=== PATIENT | male | born 1955 | race Caucasian/White ===

== ENCOUNTER 2018-05-25 16:04 | Inpatient (IN) | payer OTHER ==
[2018-05-25 16:28] LABS: ADD MAN DIFF? NO
[2018-05-25 16:34] LABS: WHITE BLOOD COUNT 9.1 10^3/ul (4.8-10.8)
[2018-05-25 16:34] LABS: ABNORMAL IP MESSAGE 1; BASOPHIL # 0.1 10^3/ul (0.0-0.1); BASOPHILS % 0.7 % (0.0-2.0); EOSINOPHILS # 0.1 10^3/ul (0.0-0.5); EOSINOPHILS % 1.3 % (0.0-7.0); HEMATOCRIT 46.3 % (42.0-52.0); HEMOGLOBIN 13.4 g/dl (14.0-18.0); LYMPHOCYTES # 1.1 10^3/ul (0.8-2.9); LYMPHOCYTES % 11.9 % (15.0-51.0); MEAN CORPUSCULAR HEMOGLOBIN 24.4 pg (29.0-33.0); MEAN CORPUSCULAR HGB CONC 28.9 g/dl (32.0-37.0); MEAN CORPUSCULAR VOLUME 84.3 fl (82.0-101.0); MEAN PLATELET VOLUME 10.5 fl (7.4-10.4); MONOCYTES % 10.7 % (0.0-11.0); NEUTROPHIL # 6.8 10^3/ul (1.6-7.5); NEUTROPHILS % 75.1 % (39.0-77.0); PLATELET COUNT 218 10^3/UL (140-415); POSITIVE DIFF @See below; RED BLOOD COUNT 5.49 10^6/ul (4.70-6.10); RED CELL DISTRIBUTION WIDTH 19.2 % (11.5-14.5)
[2018-05-25 16:54] LABS: ANION GAP 11 (8-16); BLOOD UREA NITROGEN 27 mg/dl (7-20); CALCIUM 9.4 mg/dl (8.4-10.2); CARBON DIOXIDE 32 mmol/L (21-31); CHLORIDE 103 mmol/L (97-110); CREATININE 0.77 mg/dl (0.61-1.24); GLUCOSE 92 mg/dl (70-220); POTASSIUM 4.1 mmol/L (3.5-5.1); SODIUM 142 mmol/L (135-144)
[2018-05-25 17:06] LABS: B-TYPE NATRIURETIC PEPTIDE 895 PG/ML (0-125); TROPONIN-I < 0.012 ng/ml (0.000-0.120)
[2018-05-25] MEDS: FUROSEMIDE 20 MG INJ IV (17:24)
[2018-05-25] MEDS ORDERED: ACETAMINOPHEN 325 MG TAB PO (18:00)
[2018-05-25] MEDS ORDERED: GLUCOSE GEL 15 GRAM TUBE BUCCAL (18:00)
[2018-05-25] MEDS ORDERED: ONDANSETRON 4 MG INJ IV ×2 (18:00)
[2018-05-25] MEDS ORDERED: DOCUSATE SODIUM 100 MG CAP PO (18:00)
[2018-05-25] MEDS ORDERED: DEXTROSE 50% 50 ML SYRINGE IV ×2 (18:00)
[2018-05-25] MEDS ORDERED: GLUCAGON 1 MG INJ IM (18:00)
[2018-05-25] MEDS ORDERED: GLUCOSE GEL 15 GRAM TUBE PO ×2 (18:00)
[2018-05-25] MEDS: INSULIN ASPART [NOVOLOG] 3 ML PEN SC ×2 (18:00→21:00)
[2018-05-25] MEDS: ATORVASTATIN 20 MG TAB PO (21:00)
[2018-05-25] MEDS: APIXABAN 5 MG TABLET PO (21:00)
[2018-05-25 23:21] LABS: CREATINE KINASE 55 IU/L (23-200)
[2018-05-25 23:32] LABS: CK INDEX 2.4; CK-MB 1.32 ng/ml (0.0-2.4); TROPONIN-I < 0.012 ng/ml (0.000-0.120)
[2018-05-26] MEDS: ACCU-CHEK XX ×4 (02:00→20:19)
[2018-05-26 04:17] LABS: AADO2 Arterial 144.7 mmHg (7.0-24.0); Allen Test ACCEPTAB; Arterial Base Excess 3.5 mmol/L (-3.0-3); Arterial Blood Gas Oxygen Sat 83.6 mmHG (95.0-98.0); Arterial COHb 1.9 % (0.0-3.0); Arterial Fraction of Oxyhgb 81.9 % (93.0-99.0); Arterial HCO3 29.9 mmol/L (22.0-26.0); Arterial MetHb 0.1 % (0.0-1.5); Arterial Total Hemglobin 13.8 g/dl (12.0-18.0); Arterial pCO2 52.6 mmhg (35-45); MODE NASAL CANNULA; Site Right Radial
[2018-05-26 06:41] LABS: ANION GAP 12 (8-16); BLOOD UREA NITROGEN 27 mg/dl (7-20); CALCIUM 9.5 mg/dl (8.4-10.2); CARBON DIOXIDE 36 mmol/L (21-31); CHLORIDE 99 mmol/L (97-110); CREATININE 0.81 mg/dl (0.61-1.24); GLUCOSE 95 mg/dl (70-220); POTASSIUM 4.1 mmol/L (3.5-5.1); SODIUM 143 mmol/L (135-144)
[2018-05-26 06:55] LABS: CREATINE KINASE 61 IU/L (23-200)
[2018-05-26 07:01] LABS: CK-MB 1.24 ng/ml (0.0-2.4); TROPONIN-I < 0.012 ng/ml (0.000-0.120)
[2018-05-26] MEDS: INSULIN ASPART [NOVOLOG] 3 ML PEN SC (08:00)
[2018-05-26] MEDS: metFORMIN 500 MG TAB PO ×2 (08:52→17:29)
[2018-05-26] MEDS: FUROSEMIDE 20 MG INJ IV ×2 (08:52→17:29)
[2018-05-26] MEDS: APIXABAN 5 MG TABLET PO ×2 (08:53→20:19)
[2018-05-26] MEDS ORDERED: FUROSEMIDE 20 MG INJ IV (09:00)
[2018-05-26] MEDS ORDERED: BROMOCRIPTINE MESYLATE 0.8 MG XX (09:00)
[2018-05-26] MEDS ORDERED: DIGOXIN 0.25 MG TAB PO (13:00)
[2018-05-26] MEDS: DIGOXIN 0.125 MG TAB PO (13:21)
[2018-05-26] MEDS: ATORVASTATIN 20 MG TAB PO (20:18)
[2018-05-27] MEDS: ACCU-CHEK XX ×5 (02:00→21:00)
[2018-05-27 06:01] LABS: BLOOD UREA NITROGEN 25 mg/dl (7-20); CALCIUM 9.3 mg/dl (8.4-10.2); CHLORIDE 95 mmol/L (97-110); CREATININE 0.81 mg/dl (0.61-1.24); GLUCOSE 103 mg/dl (70-220); POTASSIUM 4.1 mmol/L (3.5-5.1); SODIUM 142 mmol/L (135-144)
[2018-05-27 06:04] LABS: MAGNESIUM 1.7 mg/dl (1.7-2.5)
[2018-05-27 06:09] LABS: ANION GAP 10 (8-16)
[2018-05-27 06:10] LABS: CARBON DIOXIDE 41 mmol/L (21-31)
[2018-05-27] MEDS: FUROSEMIDE 20 MG INJ IV ×2 (06:51→17:43)
[2018-05-27] MEDS: metFORMIN 500 MG TAB PO ×2 (08:14→17:43)
[2018-05-27] MEDS: APIXABAN 5 MG TABLET PO ×2 (08:14→20:18)
[2018-05-27] MEDS: MAGNESIUM SULFATE 2 GM/50 ML 50 ML IVPB (10:03)
[2018-05-27] MEDS: DIGOXIN 0.125 MG TAB PO (13:20)
[2018-05-27] MEDS: ATORVASTATIN 20 MG TAB PO (20:18)
[2018-05-28] MEDS: ACCU-CHEK XX ×5 (02:00→21:00)
[2018-05-28] MEDS: FUROSEMIDE 20 MG INJ IV ×2 (05:56→17:55)
[2018-05-28 06:33] LABS: DIGOXIN 0.5 ng/ml (1.0-2.0)
[2018-05-28 07:01] LABS: ANION GAP 13 (8-16); BLOOD UREA NITROGEN 27 mg/dl (7-20); CALCIUM 9.4 mg/dl (8.4-10.2); CARBON DIOXIDE 38 mmol/L (21-31); CHLORIDE 92 mmol/L (97-110); GLUCOSE 149 mg/dl (70-220); POTASSIUM 3.9 mmol/L (3.5-5.1); SODIUM 139 mmol/L (135-144)
[2018-05-28] MEDS: APIXABAN 5 MG TABLET PO ×2 (08:15→20:56)
[2018-05-28] MEDS: metFORMIN 500 MG TAB PO ×2 (08:45→18:03)
[2018-05-28] MEDS: DIGOXIN 0.125 MG TAB PO (13:08)
[2018-05-28] MEDS: LINAGLIPTIN 5 MG TABLET PO (14:00)
[2018-05-28] MEDS: ACETAMINOPHEN 325 MG TAB PO (16:42)
[2018-05-28] MEDS ORDERED: ACCU-CHEK XX (17:30)
[2018-05-28] MEDS: ACARBOSE 50 MG TAB PO (17:58)
[2018-05-28] MEDS: ATORVASTATIN 20 MG TAB PO (20:56)
[2018-05-29] MEDS: ACCU-CHEK XX ×5 (02:00→21:00)
[2018-05-29 06:15] LABS: ALANINE AMINOTRANSFERASE 29 IU/L (13-69); ALBUMIN 3.7 g/dl (3.3-4.9); ALBUMIN/GLOBULIN RATIO 1.08; ALKALINE PHOSPHATASE 80 IU/L (42-121); ASPARTATE AMINO TRANSFERASE 37 IU/L (15-46); BILIRUBIN,INDIRECT 0.9 mg/dl (0-1.1); BILIRUBIN,TOTAL 0.9 mg/dl (0.2-1.3); BLOOD UREA NITROGEN 32 mg/dl (7-20); CALCIUM 9.4 mg/dl (8.4-10.2); CHLORIDE 92 mmol/L (97-110); CREATININE 0.73 mg/dl (0.61-1.24); GLUCOSE 99 mg/dl (70-220); SODIUM 142 mmol/L (135-144); TOTAL PROTEIN 7.1 g/dl (6.1-8.1)
[2018-05-29 06:27] LABS: ANION GAP 12 (8-16); CARBON DIOXIDE 42 mmol/L (21-31)
[2018-05-29] MEDS: FUROSEMIDE 20 MG INJ IV (06:35)
[2018-05-29 06:51] LABS: HEMOGLOBIN A1C 7.6 % (0-5.9)
[2018-05-29 06:55] LABS: MAGNESIUM 1.7 mg/dl (1.7-2.5)
[2018-05-29] MEDS: APIXABAN 5 MG TABLET PO ×2 (08:23→21:37)
[2018-05-29] MEDS: LINAGLIPTIN 5 MG TABLET PO (08:23)
[2018-05-29] MEDS: ACARBOSE 50 MG TAB PO ×3 (08:23→18:05)
[2018-05-29] MEDS: metFORMIN 500 MG TAB PO ×2 (08:28→18:05)
[2018-05-29] MEDS ORDERED: ACETAZOLAMIDE 500 MG INJ IV (11:00)
[2018-05-29] MEDS: ACETAZOLAMIDE 500 MG INJ IV (12:34)
[2018-05-29] MEDS: MAGNESIUM SULFATE 2 GM/50 ML 50 ML IVPB (12:34)
[2018-05-29] MEDS: DIGOXIN 0.125 MG TAB PO (13:21)
[2018-05-29] MEDS: ATORVASTATIN 20 MG TAB PO (21:37)
[2018-05-30] MEDS: ACCU-CHEK XX ×5 (02:00→21:55)
[2018-05-30 06:29] LABS: CALCIUM 9.2 mg/dl (8.4-10.2); CHLORIDE 93 mmol/L (97-110); CREATININE 0.81 mg/dl (0.61-1.24); GLUCOSE 145 mg/dl (70-220); POTASSIUM 4.1 mmol/L (3.5-5.1); SODIUM 140 mmol/L (135-144)
[2018-05-30 06:30] LABS: BLOOD UREA NITROGEN 25 mg/dl (7-20)
[2018-05-30 06:41] LABS: ANION GAP 9 (8-16); CARBON DIOXIDE 42 mmol/L (21-31)
[2018-05-30] MEDS: LINAGLIPTIN 5 MG TABLET PO (08:22)
[2018-05-30] MEDS: APIXABAN 5 MG TABLET PO ×2 (08:22→21:55)
[2018-05-30] MEDS: metFORMIN 500 MG TAB PO ×2 (08:22→17:16)
[2018-05-30] MEDS: CYCLOSET PO (08:24)
[2018-05-30] MEDS: ACARBOSE 50 MG TAB PO ×3 (08:31→17:16)
[2018-05-30] MEDS: ACETAZOLAMIDE 500 MG INJ IV ×2 (08:31→21:55)
[2018-05-30 08:47] LABS: AADO2 Arterial 72.1 mmHg (7.0-24.0); Allen Test ACCEPTAB; Arterial Base Excess 15.6 mmol/L (-3.0-3); Arterial Blood Gas Oxygen Sat 90.1 mmHG (95.0-98.0); Arterial COHb 1.8 % (0.0-3.0); Arterial Fraction of Oxyhgb 88.2 % (93.0-99.0); Arterial HCO3 45.6 mmol/L (22.0-26.0); Arterial MetHb 0.3 % (0.0-1.5); Arterial Total Hemglobin 13.2 g/dl (12.0-18.0); Arterial pCO2 87.1 mmhg (35-45); MODE NASAL CANNULA; Site Right Radial
[2018-05-30] MEDS ORDERED: MODAFINIL 100 MG TAB PO (10:00)
[2018-05-30] MEDS: DIGOXIN 0.125 MG TAB PO (12:42)
[2018-05-30] MEDS: ATORVASTATIN 20 MG TAB PO (21:54)
[2018-05-31] MEDS: ACCU-CHEK XX ×5 (02:00→21:00)
[2018-05-31 05:19] LABS: AADO2 Arterial 47.8 mmHg (7.0-24.0); Allen Test ACCEPTAB; Arterial Base Excess 7.3 mmol/L (-3.0-3); Arterial Blood Gas Oxygen Sat 86.5 mmHG (95.0-98.0); Arterial COHb 1.9 % (0.0-3.0); Arterial Fraction of Oxyhgb 84.9 % (93.0-99.0); Arterial HCO3 36.1 mmol/L (22.0-26.0); Arterial MetHb 0 % (0.0-1.5); Arterial Total Hemglobin 13.3 g/dl (12.0-18.0); Arterial pCO2 73.6 mmhg (35-45); MODE NASAL CANNULA; Site Right Radial
[2018-05-31 05:40] LABS: ADD MAN DIFF? NO
[2018-05-31 05:58] LABS: ABNORMAL IP MESSAGE 1; BASOPHIL # 0.1 10^3/ul (0.0-0.1); BASOPHILS % 0.8 % (0.0-2.0); EOSINOPHILS # 0.2 10^3/ul (0.0-0.5); EOSINOPHILS % 2.4 % (0.0-7.0); HEMATOCRIT 43.3 % (42.0-52.0); HEMOGLOBIN 12.3 g/dl (14.0-18.0); LYMPHOCYTES # 0.8 10^3/ul (0.8-2.9); LYMPHOCYTES % 13.1 % (15.0-51.0); MEAN CORPUSCULAR HEMOGLOBIN 24.5 pg (29.0-33.0); MEAN CORPUSCULAR HGB CONC 28.4 g/dl (32.0-37.0); MEAN CORPUSCULAR VOLUME 86.3 fl (82.0-101.0); MEAN PLATELET VOLUME 10.5 fl (7.4-10.4); MONOCYTE # 0.7 10^3/ul (0.3-0.9); MONOCYTES % 11.8 % (0.0-11.0); NEUTROPHIL # 4.5 10^3/ul (1.6-7.5); NEUTROPHILS % 71.4 % (39.0-77.0); PLATELET COUNT 200 10^3/UL (140-415); POSITIVE DIFF @See below; RED BLOOD COUNT 5.02 10^6/ul (4.70-6.10); RED CELL DISTRIBUTION WIDTH 17.5 % (11.5-14.5)
[2018-05-31 05:58] LABS: WHITE BLOOD COUNT 6.3 10^3/ul (4.8-10.8)
[2018-05-31 06:15] LABS: PHOSPHORUS 4.3 mg/dl (2.5-4.9)
[2018-05-31 06:50] LABS: ALANINE AMINOTRANSFERASE 31 IU/L (13-69); ALBUMIN 3.7 g/dl (3.3-4.9); ALBUMIN/GLOBULIN RATIO 1.02; ALKALINE PHOSPHATASE 87 IU/L (42-121); ANION GAP 13 (8-16); ASPARTATE AMINO TRANSFERASE 45 IU/L (15-46); BILIRUBIN,INDIRECT 0.7 mg/dl (0-1.1); BILIRUBIN,TOTAL 0.7 mg/dl (0.2-1.3); BLOOD UREA NITROGEN 21 mg/dl (7-20); CALCIUM 9.1 mg/dl (8.4-10.2); CARBON DIOXIDE 36 mmol/L (21-31); CHLORIDE 94 mmol/L (97-110); CREATININE 0.79 mg/dl (0.61-1.24); GLUCOSE 159 mg/dl (70-220); POTASSIUM 3.9 mmol/L (3.5-5.1); SODIUM 139 mmol/L (135-144); TOTAL PROTEIN 7.3 g/dl (6.1-8.1)
[2018-05-31] MEDS: ACARBOSE 50 MG TAB PO ×3 (08:14→17:30)
[2018-05-31] MEDS: ACETAZOLAMIDE 500 MG INJ IV ×2 (08:15→21:11)
[2018-05-31] MEDS: metFORMIN 500 MG TAB PO ×2 (08:15→17:31)
[2018-05-31] MEDS: APIXABAN 5 MG TABLET PO ×2 (08:15→21:10)
[2018-05-31] MEDS: LINAGLIPTIN 5 MG TABLET PO (08:15)
[2018-05-31] MEDS: CYCLOSET PO (08:16)
[2018-05-31] MEDS: DIGOXIN 0.125 MG TAB PO (12:19)
[2018-05-31] MEDS: ATORVASTATIN 20 MG TAB PO (21:10)
[2018-06-01] MEDS: ACCU-CHEK XX ×3 (02:00→11:30)
[2018-06-01] MEDS: ACARBOSE 50 MG TAB PO ×2 (07:58→11:55)
[2018-06-01] MEDS: metFORMIN 500 MG TAB PO (07:58)
[2018-06-01] MEDS: LINAGLIPTIN 5 MG TABLET PO (07:58)
[2018-06-01] MEDS: APIXABAN 5 MG TABLET PO (07:58)
[2018-06-01] MEDS: CYCLOSET PO (07:59)
[2018-06-01 09:21] LABS: ADD MAN DIFF? NO
[2018-06-01 09:22] LABS: ABNORMAL IP MESSAGE 1; BASOPHIL # 0.1 10^3/ul (0.0-0.1); BASOPHILS % 0.8 % (0.0-2.0); EOSINOPHILS # 0.1 10^3/ul (0.0-0.5); EOSINOPHILS % 1.8 % (0.0-7.0); HEMATOCRIT 43.9 % (42.0-52.0); HEMOGLOBIN 12.6 g/dl (14.0-18.0); LYMPHOCYTES # 0.9 10^3/ul (0.8-2.9); LYMPHOCYTES % 13.2 % (15.0-51.0); MEAN CORPUSCULAR HEMOGLOBIN 24.6 pg (29.0-33.0); MEAN CORPUSCULAR HGB CONC 28.7 g/dl (32.0-37.0); MEAN CORPUSCULAR VOLUME 85.6 fl (82.0-101.0); MONOCYTE # 0.7 10^3/ul (0.3-0.9); MONOCYTES % 11.2 % (0.0-11.0); NEUTROPHIL # 4.8 10^3/ul (1.6-7.5); NEUTROPHILS % 72.8 % (39.0-77.0); PLATELET COUNT 186 10^3/UL (140-415); POSITIVE DIFF @See below; RED BLOOD COUNT 5.13 10^6/ul (4.70-6.10)
[2018-06-01 09:22] LABS: WHITE BLOOD COUNT 6.6 10^3/ul (4.8-10.8)
[2018-06-01 09:43] LABS: ANION GAP 12 (8-16); BLOOD UREA NITROGEN 24 mg/dl (7-20); CALCIUM 9.5 mg/dl (8.4-10.2); CARBON DIOXIDE 35 mmol/L (21-31); CHLORIDE 97 mmol/L (97-110); CREATININE 0.81 mg/dl (0.61-1.24); GLUCOSE 158 mg/dl (70-220); POTASSIUM 4.2 mmol/L (3.5-5.1); SODIUM 140 mmol/L (135-144)
[2018-06-01] MEDS ORDERED: FUROSEMIDE 20 MG TAB PO (11:00)
[2018-06-01] MEDS: FUROSEMIDE 40 MG TAB PO (11:56)
[2018-06-01] MEDS: DIGOXIN 0.125 MG TAB PO (12:01)
== END 2018-06-01 16:14 | disposition home health service (06) | DRG 292 ==
LOC: E/R 16:04 → 6WM 17:39
DX: I11.0 Hypertensive heart disease with heart failure (principal); I47.2 Ventricular tachycardia; E87.3 Alkalosis; Z68.42 Body mass index [BMI] 45.0-49.9, adult; I50.23 Acute on chronic systolic (congestive) heart failure; I42.9 Cardiomyopathy, unspecified; I48.91 Unspecified atrial fibrillation; Z79.01 Long term (current) use of anticoagulants; E66.9 Obesity, unspecified; G47.33 Obstructive sleep apnea (adult) (pediatric)
CPT/HCPCS: 36415; 36600; 71045; 71046; 71250; 80048; 80053; 80162; 82550; 82553; 82803; 82962; 83036; 83735; 83880; 84100; 84484; 85025; 93005; 93306; 96374; 97116; 97161; 97530; 99291-25; J1120

== ENCOUNTER 2019-03-12 13:06 | Inpatient (IN) | payer OTHER ==
[2019-03-12 15:18] LABS: ADD MAN DIFF? NO
[2019-03-12 15:23] LABS: WHITE BLOOD COUNT 10.9 10^3/ul (4.8-10.8)
[2019-03-12 15:23] LABS: BASOPHILS % 0.4 % (0.0-2.0); EOSINOPHILS # 0.1 10^3/ul (0.0-0.5); HEMATOCRIT 44.3 % (42.0-52.0); HEMOGLOBIN 13.5 g/dl (14.0-18.0); LYMPHOCYTES # 1.3 10^3/ul (0.8-2.9); LYMPHOCYTES % 11.8 % (15.0-51.0); MEAN CORPUSCULAR HEMOGLOBIN 25.5 pg (29.0-33.0); MEAN CORPUSCULAR HGB CONC 30.5 g/dl (32.0-37.0); MEAN CORPUSCULAR VOLUME 83.7 fl (82.0-101.0); MEAN PLATELET VOLUME 9.9 fl (7.4-10.4); MONOCYTE # 1.3 10^3/ul (0.3-0.9); MONOCYTES % 11.6 % (0.0-11.0); NEUTROPHIL # 8.2 10^3/ul (1.6-7.5); NEUTROPHILS % 74.6 % (39.0-77.0); PLATELET COUNT 225 10^3/UL (140-415); RED BLOOD COUNT 5.29 10^6/ul (4.70-6.10)
[2019-03-12] MEDS: LEVALBUTEROL (NEB) 1.25 MG/0.5 ML AMP INH (15:38)
[2019-03-12] MEDS: IPRATROPIUM (NEB) 0.5 MG/2.5 ML AMP INH (15:38)
[2019-03-12 15:43] LABS: INR 1.34; PARTIAL THROMBOPLASTIN TIME 34.1 Sec (23.0-35.0); PROTIME 16.7 Sec (11.9-14.9); PT RATIO 1.3
[2019-03-12 15:44] LABS: ALANINE AMINOTRANSFERASE 38 IU/L (13-69); ALBUMIN/GLOBULIN RATIO 1.17; ALKALINE PHOSPHATASE 70 IU/L (42-121); ANION GAP 10 (5-13); ASPARTATE AMINO TRANSFERASE 30 IU/L (15-46); BILIRUBIN,INDIRECT 0.9 mg/dl (0-1.1); BILIRUBIN,TOTAL 0.9 mg/dl (0.2-1.3); BLOOD UREA NITROGEN 25 mg/dl (7-20); CALCIUM 9.1 mg/dl (8.4-10.2); CARBON DIOXIDE 29 mmol/L (21-31); CHLORIDE 101 mmol/L (97-110); CREATININE 0.93 mg/dl (0.61-1.24); Estimated GFR > 60 mL/min (>60); GLUCOSE 106 mg/dl (70-220); POTASSIUM 3.8 mmol/L (3.5-5.1); SODIUM 140 mmol/L (135-144); TOTAL PROTEIN 7.4 g/dl (6.1-8.1)
[2019-03-12 15:45] LABS: MAGNESIUM 2.2 mg/dl (1.7-2.5)
[2019-03-12 15:48] LABS: DIGOXIN 0.7 ng/ml (1.0-2.0)
[2019-03-12 15:56] LABS: B-TYPE NATRIURETIC PEPTIDE 324 PG/ML (0-125); TROPONIN-I < 0.012 ng/ml (0.000-0.120)
[2019-03-12 17:28] LABS: Allen Test ACCEPTAB; Arterial Base Excess -0.7 mmol/L (-3.0-3); Arterial Blood Gas Oxygen Sat 87.3 mmHG (95.0-98.0); Arterial COHb 1.6 % (0.0-3.0); Arterial Fraction of Oxyhgb 85.8 % (93.0-99.0); Arterial HCO3 24.6 mmol/L (22.0-26.0); Arterial MetHb 0.1 % (0.0-1.5); Arterial pCO2 42.8 mmhg (35-45); MODE NASAL CANNULA; Site Right Radial
[2019-03-12] MEDS: METHYLPREDNISOLONE 125 MG INJ IV (17:31)
[2019-03-12] MEDS: LEVOFLOXACIN 750MG/D5W (PMX) 150 ML IVPB (17:31)
[2019-03-12] MEDS: SOD CHLORIDE 0.9% 100 ML (18:33)
[2019-03-12] MEDS: IOHEXOL 100 ML (18:33)
[2019-03-12 18:52] LABS: URINE BLOOD (Dip) POC Negative (NEGATIVE); URINE KETONES (Dip) POC Negative (NEGATIVE); URINE LEUKOCYTE EST (Dip) POC Negative (NEGATIVE); URINE NITRITE (Dip) POC Negative (NEGATIVE); URINE TOTAL PROTEIN POC Negative (NEGATIVE)
[2019-03-12] MEDS: IPRATROPIUM (NEB) 0.5 MG/2.5 ML AMP HHN (19:40)
[2019-03-12] MEDS: LEVALBUTEROL (NEB) 1.25 MG/0.5 ML AMP HHN (19:40)
[2019-03-12] MEDS ORDERED: ONDANSETRON 4 MG INJ IV (20:30)
[2019-03-12] MEDS ORDERED: ZOLPIDEM 5 MG TAB PO (20:30)
[2019-03-12] MEDS ORDERED: PROMETHAZINE/DM (CUP) PO (21:00)
[2019-03-12] MEDS ORDERED: GLUCOSE GEL 15 GRAM TUBE BUCCAL (21:00)
[2019-03-12] MEDS ORDERED: GLUCOSE GEL 15 GRAM TUBE PO ×2 (21:00)
[2019-03-12] MEDS: INSULIN ASPART [NOVOLOG] 3 ML PEN SC (21:00)
[2019-03-12] MEDS ORDERED: DEXTROSE 50% 50 ML SYRINGE IV ×2 (21:00)
[2019-03-12] MEDS ORDERED: NON-FORMULARY/PATIENT OWN MED (Simvastatin* (Zocor*) 40 MG) PO (21:00)
[2019-03-12] MEDS ORDERED: GLUCAGON 1 MG INJ IM (21:00)
[2019-03-12 21:44] LABS: LACTIC ACID 1.4 mmol/L (0.5-2.0)
[2019-03-12] MEDS: FUROSEMIDE 40 MG TAB PO (21:57)
[2019-03-12] MEDS: ATORVASTATIN 20 MG TAB PO (23:24)
[2019-03-13] MEDS: METHYLPREDNISOLONE 125 MG INJ IV ×4 (01:00→21:33)
[2019-03-13] MEDS: ALBUTEROL/IPRATROPIUM (NEB) 3 ML AMP HHN ×6 (01:41→19:39)
[2019-03-13] MEDS: INSULIN ASPART [NOVOLOG] 3 ML PEN SC ×4 (08:00→21:04)
[2019-03-13] MEDS ORDERED: BROMOCRIPTINE MESYLATE PO (09:00)
[2019-03-13] MEDS: GLIMEPIRIDE 4 MG TAB PO ×2 (09:34→17:32)
[2019-03-13] MEDS: metFORMIN 500 MG TAB PO (09:34)
[2019-03-13] MEDS: DIGOXIN 0.25 MG TAB PO (10:12)
[2019-03-13] MEDS: FUROSEMIDE 40 MG TAB PO ×2 (10:13→21:34)
[2019-03-13] MEDS: APIXABAN 5 MG TABLET PO ×2 (12:53→21:34)
[2019-03-13] MEDS: LEVOFLOXACIN 750MG/D5W (PMX) 150 ML IVPB (17:16)
[2019-03-13] MEDS: METOPROLOL (XL) 25 MG TAB PO (21:34)
[2019-03-13] MEDS: ATORVASTATIN 20 MG TAB PO (21:34)
[2019-03-13] MEDS: [UNRECOGNIZED DRUG - OTHER] XX (23:30)
[2019-03-14] MEDS: ALBUTEROL/IPRATROPIUM (NEB) 3 ML AMP HHN ×6 (01:06→20:26)
[2019-03-14] MEDS: METHYLPREDNISOLONE 125 MG INJ IV ×3 (05:37→17:27)
[2019-03-14 05:41] LABS: ADD MAN DIFF? NO
[2019-03-14 05:43] LABS: BASOPHILS % 0.1 % (0.0-2.0); HEMATOCRIT 43.5 % (42.0-52.0); HEMOGLOBIN 13.2 g/dl (14.0-18.0); LYMPHOCYTES # 0.7 10^3/ul (0.8-2.9); LYMPHOCYTES % 6.6 % (15.0-51.0); MEAN CORPUSCULAR HEMOGLOBIN 25.5 pg (29.0-33.0); MEAN CORPUSCULAR HGB CONC 30.3 g/dl (32.0-37.0); MEAN PLATELET VOLUME 10.4 fl (7.4-10.4); MONOCYTE # 0.4 10^3/ul (0.3-0.9); MONOCYTES % 3.2 % (0.0-11.0); NEUTROPHILS % 89.2 % (39.0-77.0); PLATELET COUNT 256 10^3/UL (140-415); RED BLOOD COUNT 5.18 10^6/ul (4.70-6.10); RED CELL DISTRIBUTION WIDTH 16.6 % (11.5-14.5)
[2019-03-14 05:43] LABS: WHITE BLOOD COUNT 11.2 10^3/ul (4.8-10.8)
[2019-03-14 06:06] LABS: ALANINE AMINOTRANSFERASE 31 IU/L (13-69); ALBUMIN 3.9 g/dl (3.3-4.9); ALBUMIN/GLOBULIN RATIO 1.21; ALKALINE PHOSPHATASE 69 IU/L (42-121); ANION GAP 12 (5-13); ASPARTATE AMINO TRANSFERASE 35 IU/L (15-46); BILIRUBIN,INDIRECT 0.5 mg/dl (0-1.1); BILIRUBIN,TOTAL 0.5 mg/dl (0.2-1.3); BLOOD UREA NITROGEN 22 mg/dl (7-20); CALCIUM 9.8 mg/dl (8.4-10.2); CARBON DIOXIDE 30 mmol/L (21-31); CHLORIDE 102 mmol/L (97-110); CREATININE 0.89 mg/dl (0.61-1.24); Estimated GFR > 60 mL/min (>60); GLUCOSE 256 mg/dl (70-220); MAGNESIUM 2.3 mg/dl (1.7-2.5); POTASSIUM 4.2 mmol/L (3.5-5.1); SODIUM 144 mmol/L (135-144); TOTAL PROTEIN 7.1 g/dl (6.1-8.1)
[2019-03-14] MEDS: [UNRECOGNIZED DRUG - OTHER] XX (07:30)
[2019-03-14] MEDS: GLIMEPIRIDE 4 MG TAB PO (07:46)
[2019-03-14 07:52] LABS: AADO2 Arterial 586.1 mmHg (7.0-24.0); Allen Test ACCEPTAB; Arterial Base Excess 2.3 mmol/L (-3.0-3); Arterial Blood Gas Oxygen Sat 95.2 mmHG (95.0-98.0); Arterial COHb 0.4 % (0.0-3.0); Arterial Fraction of Oxyhgb 94.8 % (93.0-99.0); Arterial HCO3 27.7 mmol/L (22.0-26.0); Arterial MetHb 0 % (0.0-1.5); Arterial pCO2 45.7 mmhg (35-45); MODE HFNC; Site Right Radial
[2019-03-14] MEDS: INSULIN ASPART [NOVOLOG] 3 ML PEN SC ×4 (07:59→20:58)
[2019-03-14] MEDS: APIXABAN 5 MG TABLET PO ×2 (08:53→20:51)
[2019-03-14] MEDS: DIGOXIN 0.25 MG TAB PO (08:53)
[2019-03-14] MEDS: METOPROLOL (XL) 25 MG TAB PO ×2 (08:54→20:51)
[2019-03-14] MEDS: FUROSEMIDE 40 MG TAB PO ×2 (08:59→20:51)
[2019-03-14] MEDS ORDERED: VANCOMYCIN IV PER PHARMACY XX (09:30)
[2019-03-14] MEDS: CEFEPIME 2GM/50 ML (PMX) 50 ML IVPB ×3 (09:56→21:21)
[2019-03-14] MEDS: VANCOMYCIN HCL 2 GM in SOD CHLORIDE 0.9% 500 ML IVPB (12:05)
[2019-03-14] MEDS: CYCLOSET PO (14:34)
[2019-03-14] MEDS: ACETAZOLAMIDE 250 MG TAB PO (20:51)
[2019-03-14] MEDS: ATORVASTATIN 20 MG TAB PO (20:51)
[2019-03-15] MEDS: VANCOMYCIN HCL 1.5 GM in SOD CHLORIDE 0.9% 250 ML IVPB ×2 (00:35→15:33)
[2019-03-15] MEDS: METHYLPREDNISOLONE 125 MG INJ IV ×4 (00:35→20:38)
[2019-03-15] MEDS: ALBUTEROL/IPRATROPIUM (NEB) 3 ML AMP HHN ×6 (01:16→20:42)
[2019-03-15 05:24] LABS: ADD MAN DIFF? NO
[2019-03-15 05:34] LABS: WHITE BLOOD COUNT 13.9 10^3/ul (4.8-10.8)
[2019-03-15 05:34] LABS: BASOPHILS % 0.1 % (0.0-2.0); HEMOGLOBIN 12.8 g/dl (14.0-18.0); LYMPHOCYTES # 0.9 10^3/ul (0.8-2.9); LYMPHOCYTES % 6.6 % (15.0-51.0); MEAN CORPUSCULAR HEMOGLOBIN 25.4 pg (29.0-33.0); MEAN CORPUSCULAR HGB CONC 30.5 g/dl (32.0-37.0); MEAN CORPUSCULAR VOLUME 83.3 fl (82.0-101.0); MEAN PLATELET VOLUME 10.7 fl (7.4-10.4); MONOCYTE # 0.6 10^3/ul (0.3-0.9); MONOCYTES % 4.5 % (0.0-11.0); NEUTROPHIL # 12.3 10^3/ul (1.6-7.5); NEUTROPHILS % 87.9 % (39.0-77.0); PLATELET COUNT 240 10^3/UL (140-415); RED BLOOD COUNT 5.04 10^6/ul (4.70-6.10); RED CELL DISTRIBUTION WIDTH 16.5 % (11.5-14.5)
[2019-03-15] MEDS: CEFEPIME 2GM/50 ML (PMX) 50 ML IVPB ×3 (05:42→22:08)
[2019-03-15 05:57] LABS: PHOSPHORUS 4.1 mg/dl (2.5-4.9)
[2019-03-15 05:57] LABS: MAGNESIUM 2.4 mg/dl (1.7-2.5)
[2019-03-15 05:58] LABS: ANION GAP 7 (5-13); BLOOD UREA NITROGEN 21 mg/dl (7-20); CARBON DIOXIDE 31 mmol/L (21-31); CHLORIDE 101 mmol/L (97-110); CREATININE 0.74 mg/dl (0.61-1.24); Estimated GFR > 60 mL/min (>60); GLUCOSE 272 mg/dl (70-220); POTASSIUM 4.2 mmol/L (3.5-5.1); SODIUM 139 mmol/L (135-144)
[2019-03-15] MEDS: INSULIN ASPART [NOVOLOG] 3 ML PEN SC ×4 (08:53→20:53)
[2019-03-15] MEDS: FUROSEMIDE 40 MG TAB PO ×2 (08:54→20:43)
[2019-03-15] MEDS: DIGOXIN 0.25 MG TAB PO (08:55)
[2019-03-15] MEDS: METOPROLOL (XL) 25 MG TAB PO ×2 (08:55→20:42)
[2019-03-15] MEDS: APIXABAN 5 MG TABLET PO ×2 (08:56→20:43)
[2019-03-15] MEDS: ACETAZOLAMIDE 250 MG TAB PO ×2 (08:56→20:43)
[2019-03-15] MEDS: CYCLOSET PO (09:00)
[2019-03-15 10:03] LABS: AADO2 Arterial 600.7 mmHg (7.0-24.0); Allen Test ACCEPTAB; Arterial Base Excess 3.2 mmol/L (-3.0-3); Arterial Blood Gas Oxygen Sat 92.1 mmHG (95.0-98.0); Arterial Fraction of Oxyhgb 91.1 % (93.0-99.0); Arterial HCO3 28.7 mmol/L (22.0-26.0); Arterial MetHb 0.1 % (0.0-1.5); Arterial pCO2 46.8 mmhg (35-45); MODE HFNC; Site Right Radial
[2019-03-15] MEDS: ATORVASTATIN 20 MG TAB PO (20:41)
[2019-03-15] MEDS: INSULIN GLARGINE [LANTus] (100 UNITS/ML) SYG SC (20:53)
[2019-03-15] MEDS: metFORMIN (XR) 500 MG TAB PO (22:07)
[2019-03-15 23:53] LABS: VANCOMYCIN,TROUGH 11.2 ug/ml (10.0-20.0)
[2019-03-16] MEDS: METHYLPREDNISOLONE 125 MG INJ IV ×5 (00:21→23:07)
[2019-03-16] MEDS: VANCOMYCIN HCL 1.5 GM in SOD CHLORIDE 0.9% 250 ML IVPB ×3 (00:21→23:07)
[2019-03-16] MEDS: ALBUTEROL/IPRATROPIUM (NEB) 3 ML AMP HHN ×6 (01:17→21:15)
[2019-03-16] MEDS: ACCU-CHEK XX (02:00)
[2019-03-16 05:39] LABS: ADD MAN DIFF? NO
[2019-03-16 05:44] LABS: BASOPHILS % 0.1 % (0.0-2.0); HEMATOCRIT 42.6 % (42.0-52.0); LYMPHOCYTES # 0.7 10^3/ul (0.8-2.9); LYMPHOCYTES % 5.5 % (15.0-51.0); MEAN CORPUSCULAR HEMOGLOBIN 25.8 pg (29.0-33.0); MEAN CORPUSCULAR HGB CONC 30.5 g/dl (32.0-37.0); MEAN CORPUSCULAR VOLUME 84.7 fl (82.0-101.0); MEAN PLATELET VOLUME 10.5 fl (7.4-10.4); MONOCYTE # 0.5 10^3/ul (0.3-0.9); MONOCYTES % 3.9 % (0.0-11.0); NEUTROPHIL # 11.6 10^3/ul (1.6-7.5); NEUTROPHILS % 89.9 % (39.0-77.0); PLATELET COUNT 217 10^3/UL (140-415); RED BLOOD COUNT 5.03 10^6/ul (4.70-6.10); RED CELL DISTRIBUTION WIDTH 16.4 % (11.5-14.5)
[2019-03-16 05:44] LABS: WHITE BLOOD COUNT 12.9 10^3/ul (4.8-10.8)
[2019-03-16] MEDS: CEFEPIME 2GM/50 ML (PMX) 50 ML IVPB ×3 (05:52→21:05)
[2019-03-16 06:23] LABS: ANION GAP 10 (5-13); BLOOD UREA NITROGEN 24 mg/dl (7-20); CALCIUM 9.2 mg/dl (8.4-10.2); CARBON DIOXIDE 29 mmol/L (21-31); CHLORIDE 100 mmol/L (97-110); CREATININE 0.86 mg/dl (0.61-1.24); Estimated GFR > 60 mL/min (>60); GLUCOSE 300 mg/dl (70-220); MAGNESIUM 2.4 mg/dl (1.7-2.5); PHOSPHORUS 3.8 mg/dl (2.5-4.9); POTASSIUM 4.2 mmol/L (3.5-5.1); SODIUM 139 mmol/L (135-144)
[2019-03-16] MEDS: INSULIN ASPART [NOVOLOG] 3 ML PEN SC ×7 (07:35→20:49)
[2019-03-16] MEDS: CYCLOSET PO (08:39)
[2019-03-16] MEDS: EMPAGLIFLOZIN 10 MG TABLET PO (08:40)
[2019-03-16] MEDS: metFORMIN (XR) 500 MG TAB PO ×2 (08:40→20:33)
[2019-03-16] MEDS: ACETAZOLAMIDE 250 MG TAB PO ×2 (08:41→20:34)
[2019-03-16] MEDS: LINAGLIPTIN 5 MG TABLET PO (08:41)
[2019-03-16] MEDS: APIXABAN 5 MG TABLET PO ×2 (08:42→20:32)
[2019-03-16] MEDS: DIGOXIN 0.25 MG TAB PO (08:42)
[2019-03-16] MEDS: METOPROLOL (XL) 25 MG TAB PO ×2 (09:00→20:34)
[2019-03-16] MEDS: FUROSEMIDE 40 MG TAB PO ×2 (09:00→20:33)
[2019-03-16] MEDS: ATORVASTATIN 20 MG TAB PO (20:33)
[2019-03-16] MEDS: INSULIN GLARGINE [LANTus] (100 UNITS/ML) SYG SC (20:38)
[2019-03-17] MEDS: ALBUTEROL/IPRATROPIUM (NEB) 3 ML AMP HHN ×7 (01:25→20:56)
[2019-03-17] MEDS: ACCU-CHEK XX (02:15)
[2019-03-17] MEDS: METHYLPREDNISOLONE 125 MG INJ IV ×4 (05:23→23:39)
[2019-03-17] MEDS: CEFEPIME 2GM/50 ML (PMX) 50 ML IVPB ×3 (05:23→21:24)
[2019-03-17 06:22] LABS: B-TYPE NATRIURETIC PEPTIDE 912 PG/ML (0-125)
[2019-03-17 06:23] LABS: DIGOXIN < 0.4 ng/ml (1.0-2.0)
[2019-03-17 06:30] LABS: ALANINE AMINOTRANSFERASE 63 IU/L (13-69); ALBUMIN 3.7 g/dl (3.3-4.9); ALBUMIN/GLOBULIN RATIO 1.27; ALKALINE PHOSPHATASE 65 IU/L (42-121); ANION GAP 10 (5-13); ASPARTATE AMINO TRANSFERASE 40 IU/L (15-46); BILIRUBIN,INDIRECT 0.6 mg/dl (0-1.1); BILIRUBIN,TOTAL 0.6 mg/dl (0.2-1.3); BLOOD UREA NITROGEN 27 mg/dl (7-20); CALCIUM 9.5 mg/dl (8.4-10.2); CARBON DIOXIDE 30 mmol/L (21-31); CHLORIDE 99 mmol/L (97-110); CREATININE 0.82 mg/dl (0.61-1.24); Estimated GFR > 60 mL/min (>60); GLUCOSE 194 mg/dl (70-220); MAGNESIUM 2.3 mg/dl (1.7-2.5); POTASSIUM 3.9 mmol/L (3.5-5.1); SODIUM 139 mmol/L (135-144); TOTAL PROTEIN 6.6 g/dl (6.1-8.1)
[2019-03-17] MEDS: INSULIN ASPART [NOVOLOG] 3 ML PEN SC ×7 (08:18→21:00)
[2019-03-17] MEDS: metFORMIN (XR) 500 MG TAB PO ×2 (08:41→20:48)
[2019-03-17] MEDS: DIGOXIN 0.25 MG TAB PO (08:43)
[2019-03-17] MEDS: LINAGLIPTIN 5 MG TABLET PO (08:43)
[2019-03-17] MEDS: METOPROLOL (XL) 25 MG TAB PO ×2 (08:44→20:49)
[2019-03-17] MEDS: FUROSEMIDE 40 MG TAB PO (08:45)
[2019-03-17] MEDS: APIXABAN 5 MG TABLET PO ×2 (08:46→20:48)
[2019-03-17] MEDS: EMPAGLIFLOZIN 10 MG TABLET PO (08:56)
[2019-03-17] MEDS: ACETAZOLAMIDE 250 MG TAB PO ×2 (08:56→20:48)
[2019-03-17 10:45] LABS: AADO2 Arterial 524.5 mmHg (7.0-24.0); Allen Test ACCEPTAB; Arterial Base Excess 0.1 mmol/L (-3.0-3); Arterial Blood Gas Oxygen Sat 94.8 mmHG (95.0-98.0); Arterial COHb 0.4 % (0.0-3.0); Arterial Fraction of Oxyhgb 94.3 % (93.0-99.0); Arterial HCO3 24.9 mmol/L (22.0-26.0); Arterial MetHb 0.1 % (0.0-1.5); Arterial pCO2 40.7 mmhg (35-45); MODE HFNC; Site Right Radial
[2019-03-17] MEDS: SPIRONOLACTONE 25 MG TAB PO (12:30)
[2019-03-17] MEDS: POTASSIUM CHLORIDE (SR) 20 MEQ TAB PO (14:24)
[2019-03-17] MEDS: VANCOMYCIN HCL 1.5 GM in SOD CHLORIDE 0.9% 250 ML IVPB ×2 (14:25→23:39)
[2019-03-17] MEDS: DIGOXIN 500 MCG INJ IV (16:02)
[2019-03-17] MEDS: CYCLOSET PO (16:02)
[2019-03-17] MEDS: FUROSEMIDE 40 MG INJ IV (17:48)
[2019-03-17] MEDS: ATORVASTATIN 20 MG TAB PO (20:48)
[2019-03-17] MEDS: INSULIN GLARGINE [LANTus] (100 UNITS/ML) SYG SC (20:55)
[2019-03-18] MEDS: ALBUTEROL/IPRATROPIUM (NEB) 3 ML AMP HHN ×6 (01:03→20:47)
[2019-03-18] MEDS: ACCU-CHEK XX (02:00)
[2019-03-18 06:20] LABS: B-TYPE NATRIURETIC PEPTIDE 649 PG/ML (0-125)
[2019-03-18 06:25] LABS: FREE T4 (FREE THYROXINE) 0.86 ng/dl (0.78-2.44)
[2019-03-18] MEDS: METHYLPREDNISOLONE 125 MG INJ IV ×3 (06:32→18:38)
[2019-03-18] MEDS: CEFEPIME 2GM/50 ML (PMX) 50 ML IVPB ×3 (06:32→21:03)
[2019-03-18] MEDS: FUROSEMIDE 40 MG INJ IV ×2 (06:33→18:37)
[2019-03-18 06:37] LABS: MAGNESIUM 2.3 mg/dl (1.7-2.5)
[2019-03-18 06:41] LABS: THYROID STIMULATING HORMONE 0.092 MIU/L (0.465-4.680)
[2019-03-18] MEDS: INSULIN ASPART [NOVOLOG] 3 ML PEN SC ×7 (08:25→21:00)
[2019-03-18] MEDS: EMPAGLIFLOZIN 10 MG TABLET PO (09:34)
[2019-03-18] MEDS: SPIRONOLACTONE 25 MG TAB PO (09:34)
[2019-03-18] MEDS: ACETAZOLAMIDE 250 MG TAB PO ×2 (09:35→20:54)
[2019-03-18] MEDS: DIGOXIN 0.25 MG TAB PO (09:35)
[2019-03-18] MEDS: metFORMIN (XR) 500 MG TAB PO ×2 (09:36→20:54)
[2019-03-18] MEDS: APIXABAN 5 MG TABLET PO ×2 (09:36→20:53)
[2019-03-18] MEDS: METOPROLOL (XL) 25 MG TAB PO ×2 (09:37→20:55)
[2019-03-18] MEDS: LINAGLIPTIN 5 MG TABLET PO (09:38)
[2019-03-18] MEDS: CYCLOSET PO (09:43)
[2019-03-18 09:54] LABS: ADD MAN DIFF? NO
[2019-03-18 10:03] LABS: WHITE BLOOD COUNT 13.6 10^3/ul (4.8-10.8)
[2019-03-18 10:03] LABS: BASOPHILS % 0.1 % (0.0-2.0); HEMATOCRIT 45.4 % (42.0-52.0); HEMOGLOBIN 14.2 g/dl (14.0-18.0); LYMPHOCYTES # 0.8 10^3/ul (0.8-2.9); LYMPHOCYTES % 5.6 % (15.0-51.0); MEAN CORPUSCULAR HEMOGLOBIN 25.6 pg (29.0-33.0); MEAN CORPUSCULAR HGB CONC 31.3 g/dl (32.0-37.0); MEAN CORPUSCULAR VOLUME 81.9 fl (82.0-101.0); MEAN PLATELET VOLUME 10.4 fl (7.4-10.4); MONOCYTE # 0.4 10^3/ul (0.3-0.9); NEUTROPHIL # 12.3 10^3/ul (1.6-7.5); NEUTROPHILS % 90.4 % (39.0-77.0); PLATELET COUNT 217 10^3/UL (140-415); RED BLOOD COUNT 5.54 10^6/ul (4.70-6.10); RED CELL DISTRIBUTION WIDTH 16.2 % (11.5-14.5)
[2019-03-18 10:19] LABS: ANION GAP 13 (5-13); BLOOD UREA NITROGEN 31 mg/dl (7-20); CALCIUM 9.4 mg/dl (8.4-10.2); CARBON DIOXIDE 30 mmol/L (21-31); CHLORIDE 96 mmol/L (97-110); Estimated GFR > 60 mL/min (>60); GLUCOSE 215 mg/dl (70-220); POTASSIUM 3.9 mmol/L (3.5-5.1); SODIUM 139 mmol/L (135-144)
[2019-03-18] MEDS: ATORVASTATIN 20 MG TAB PO (20:54)
[2019-03-18] MEDS: INSULIN GLARGINE [LANTus] (100 UNITS/ML) SYG SC (21:02)
[2019-03-19] MEDS: METHYLPREDNISOLONE 125 MG INJ IV ×4 (00:30→17:43)
[2019-03-19] MEDS: ALBUTEROL/IPRATROPIUM (NEB) 3 ML AMP HHN ×6 (00:55→20:40)
[2019-03-19] MEDS: ACCU-CHEK XX (02:00)
[2019-03-19 04:56] LABS: ADD MAN DIFF? NO
[2019-03-19 05:04] LABS: WHITE BLOOD COUNT 15.4 10^3/ul (4.8-10.8)
[2019-03-19 05:04] LABS: BASOPHILS % 0.1 % (0.0-2.0); EOSINOPHILS % 0.1 % (0.0-7.0); HEMATOCRIT 43.8 % (42.0-52.0); HEMOGLOBIN 13.6 g/dl (14.0-18.0); LYMPHOCYTES # 0.8 10^3/ul (0.8-2.9); LYMPHOCYTES % 5.3 % (15.0-51.0); MEAN CORPUSCULAR HEMOGLOBIN 25.5 pg (29.0-33.0); MEAN CORPUSCULAR HGB CONC 31.1 g/dl (32.0-37.0); MEAN CORPUSCULAR VOLUME 82.2 fl (82.0-101.0); MEAN PLATELET VOLUME 9.8 fl (7.4-10.4); MONOCYTE # 0.6 10^3/ul (0.3-0.9); MONOCYTES % 3.6 % (0.0-11.0); NEUTROPHIL # 13.8 10^3/ul (1.6-7.5); NEUTROPHILS % 90.1 % (39.0-77.0); PLATELET COUNT 201 10^3/UL (140-415); RED BLOOD COUNT 5.33 10^6/ul (4.70-6.10); RED CELL DISTRIBUTION WIDTH 16.1 % (11.5-14.5)
[2019-03-19 05:29] LABS: ANION GAP 11 (5-13); BLOOD UREA NITROGEN 38 mg/dl (7-20); CALCIUM 9.2 mg/dl (8.4-10.2); CARBON DIOXIDE 30 mmol/L (21-31); CHLORIDE 97 mmol/L (97-110); CREATININE 0.88 mg/dl (0.61-1.24); Estimated GFR > 60 mL/min (>60); GLUCOSE 167 mg/dl (70-220); POTASSIUM 4.3 mmol/L (3.5-5.1); SODIUM 138 mmol/L (135-144)
[2019-03-19] MEDS: FUROSEMIDE 40 MG INJ IV (05:29)
[2019-03-19] MEDS: CEFEPIME 2GM/50 ML (PMX) 50 ML IVPB ×3 (05:29→22:04)
[2019-03-19] MEDS: INSULIN ASPART [NOVOLOG] 3 ML PEN SC ×8 (08:20→21:29)
[2019-03-19] MEDS: EMPAGLIFLOZIN 10 MG TABLET PO (09:24)
[2019-03-19] MEDS: CYCLOSET PO (09:25)
[2019-03-19] MEDS: SPIRONOLACTONE 25 MG TAB PO (09:26)
[2019-03-19] MEDS: ACETAZOLAMIDE 250 MG TAB PO ×2 (09:26→21:11)
[2019-03-19] MEDS: DIGOXIN 0.25 MG TAB PO (09:27)
[2019-03-19] MEDS: APIXABAN 5 MG TABLET PO ×2 (09:27→21:10)
[2019-03-19] MEDS: metFORMIN (XR) 500 MG TAB PO ×2 (09:28→21:11)
[2019-03-19] MEDS: METOPROLOL (XL) 25 MG TAB PO ×2 (09:30→21:10)
[2019-03-19] MEDS: LINAGLIPTIN 5 MG TABLET PO (09:31)
[2019-03-19] MEDS: INSULIN GLARGINE [LANTus] (100 UNITS/ML) SYG SC (20:23)
[2019-03-19] MEDS: ATORVASTATIN 20 MG TAB PO (21:10)
[2019-03-20] MEDS: METHYLPREDNISOLONE 125 MG INJ IV ×4 (00:03→18:20)
[2019-03-20] MEDS: ALBUTEROL/IPRATROPIUM (NEB) 3 ML AMP HHN ×6 (00:48→20:13)
[2019-03-20] MEDS: ACCU-CHEK XX (01:58)
[2019-03-20] MEDS: CEFEPIME 2GM/50 ML (PMX) 50 ML IVPB ×3 (05:47→21:52)
[2019-03-20] MEDS: EMPAGLIFLOZIN 10 MG TABLET PO (08:28)
[2019-03-20] MEDS: INSULIN ASPART [NOVOLOG] 3 ML PEN SC ×6 (08:35→21:02)
[2019-03-20] MEDS ORDERED: VALPROATE INJ 1,000 MG in SOD CHLORIDE 0.9% 100 ML IVPB (08:46)
[2019-03-20] MEDS: APIXABAN 5 MG TABLET PO ×2 (09:21→20:45)
[2019-03-20] MEDS: metFORMIN (XR) 500 MG TAB PO ×2 (09:21→20:46)
[2019-03-20] MEDS: DIGOXIN 0.25 MG TAB PO (09:22)
[2019-03-20] MEDS: LINAGLIPTIN 5 MG TABLET PO (09:22)
[2019-03-20] MEDS: FUROSEMIDE 40 MG INJ IV (09:25)
[2019-03-20] MEDS: SPIRONOLACTONE 25 MG TAB PO (09:25)
[2019-03-20] MEDS: METOPROLOL (XL) 25 MG TAB PO ×2 (09:26→20:45)
[2019-03-20] MEDS: ACETAZOLAMIDE 250 MG TAB PO ×2 (09:35→21:05)
[2019-03-20] MEDS: CYCLOSET PO (09:35)
[2019-03-20] MEDS: NYSTATIN SUSP 5 ML CUP PO ×3 (13:08→20:47)
[2019-03-20 14:37] LABS: HIV 1&2 ANTIBODY NEGATIVE (NEGATIVE)
[2019-03-20] MEDS: CASPOFUNGIN 70 MG in SOD CHLORIDE 0.9% 250 ML IVPB (14:47)
[2019-03-20] MEDS: ATORVASTATIN 20 MG TAB PO (20:46)
[2019-03-20] MEDS: INSULIN GLARGINE [LANTus] (100 UNITS/ML) SYG SC (20:59)
[2019-03-21] MEDS: METHYLPREDNISOLONE 125 MG INJ IV ×4 (00:17→18:13)
[2019-03-21] MEDS: ALBUTEROL/IPRATROPIUM (NEB) 3 ML AMP HHN ×6 (00:19→20:51)
[2019-03-21] MEDS: ACCU-CHEK XX (02:00)
[2019-03-21] MEDS: CEFEPIME 2GM/50 ML (PMX) 50 ML IVPB (05:21)
[2019-03-21] MEDS: INSULIN ASPART [NOVOLOG] 3 ML PEN SC ×7 (08:24→22:06)
[2019-03-21] MEDS: FUROSEMIDE 40 MG INJ IV (08:44)
[2019-03-21] MEDS: EMPAGLIFLOZIN 10 MG TABLET PO (08:44)
[2019-03-21] MEDS: SPIRONOLACTONE 25 MG TAB PO (08:45)
[2019-03-21] MEDS: DIGOXIN 0.25 MG TAB PO (08:46)
[2019-03-21] MEDS: APIXABAN 5 MG TABLET PO ×2 (08:46→22:00)
[2019-03-21] MEDS: metFORMIN (XR) 500 MG TAB PO ×2 (08:47→22:01)
[2019-03-21] MEDS: NYSTATIN SUSP 5 ML CUP PO ×4 (08:47→22:03)
[2019-03-21] MEDS: LINAGLIPTIN 5 MG TABLET PO (08:48)
[2019-03-21] MEDS: METOPROLOL (XL) 25 MG TAB PO ×2 (08:49→22:08)
[2019-03-21] MEDS: CYCLOSET PO (08:56)
[2019-03-21] MEDS: ACETAZOLAMIDE 250 MG TAB PO ×2 (09:06→22:03)
[2019-03-21 09:45] LABS: AADO2 Arterial 250.5 mmHg (7.0-24.0); Allen Test ACCEPTAB; Arterial Blood Gas Oxygen Sat 90.6 mmHG (95.0-98.0); Arterial COHb 0.9 % (0.0-3.0); Arterial Fraction of Oxyhgb 89.5 % (93.0-99.0); Arterial HCO3 22.7 mmol/L (22.0-26.0); Arterial MetHb 0.3 % (0.0-1.5); Arterial pCO2 38.6 mmhg (35-45); MODE HFNC; Site Right Radial
[2019-03-21] MEDS: BISACODYL 10 MG SUPP PR (12:50)
[2019-03-21] MEDS: POLYETHYLENE GLYCOL 17 GM PACKET PO ×2 (12:59→22:02)
[2019-03-21] MEDS: DOCUSATE SODIUM 100 MG CAP PO ×2 (12:59→22:00)
[2019-03-21] MEDS: IOHEXOL 300MG/ML 150 ML BTL (13:18)
[2019-03-21] MEDS: SOD CHLORIDE 0.9% 100 ML (13:18)
[2019-03-21] MEDS: DOXYCYCLINE 100 MG TAB PO ×2 (14:13→22:01)
[2019-03-21] MEDS: CEFTRIAXONE 2 GM/50 ML (PMX) 50 ML IVPB (14:14)
[2019-03-21 15:12] LABS: ANION GAP 14 (5-13); BLOOD UREA NITROGEN 31 mg/dl (7-20); CALCIUM 9.3 mg/dl (8.4-10.2); CARBON DIOXIDE 27 mmol/L (21-31); CHLORIDE 96 mmol/L (97-110); CREATININE 0.95 mg/dl (0.61-1.24); Estimated GFR > 60 mL/min (>60); GLUCOSE 158 mg/dl (70-220); MAGNESIUM 2.3 mg/dl (1.7-2.5); PHOSPHORUS 3.6 mg/dl (2.5-4.9); POTASSIUM 4.3 mmol/L (3.5-5.1); SODIUM 137 mmol/L (135-144)
[2019-03-21] MEDS: CASPOFUNGIN 50 MG in SOD CHLORIDE 0.9% 250 ML IVPB (16:04)
[2019-03-21] MEDS: ATORVASTATIN 20 MG TAB PO (22:01)
[2019-03-21] MEDS: INSULIN GLARGINE [LANTus] (100 UNITS/ML) SYG SC (22:17)
[2019-03-22] MEDS: ALBUTEROL/IPRATROPIUM (NEB) 3 ML AMP HHN ×6 (00:52→20:05)
[2019-03-22] MEDS: ACCU-CHEK XX (01:13)
[2019-03-22] MEDS: METHYLPREDNISOLONE 125 MG INJ IV ×2 (01:21→06:23)
[2019-03-22 05:05] LABS: Allen Test ACCEPTAB; Arterial Base Excess 3.2 mmol/L (-3.0-3); Arterial Blood Gas Oxygen Sat 88.1 mmHG (95.0-98.0); Arterial COHb 1.4 % (0.0-3.0); Arterial Fraction of Oxyhgb 86.9 % (93.0-99.0); Arterial HCO3 27.6 mmol/L (22.0-26.0); Arterial MetHb 0 % (0.0-1.5); Arterial pCO2 41.3 mmhg (35-45); MODE HFNC; Site Right Radial
[2019-03-22 05:55] LABS: ADD MAN DIFF? NO
[2019-03-22 05:59] LABS: BASOPHILS % 0.2 % (0.0-2.0); EOSINOPHILS % 0.2 % (0.0-7.0); HEMATOCRIT 46.7 % (42.0-52.0); HEMOGLOBIN 14.3 g/dl (14.0-18.0); LYMPHOCYTES # 0.7 10^3/ul (0.8-2.9); LYMPHOCYTES % 4.3 % (15.0-51.0); MEAN CORPUSCULAR HEMOGLOBIN 25.3 pg (29.0-33.0); MEAN CORPUSCULAR HGB CONC 30.6 g/dl (32.0-37.0); MEAN CORPUSCULAR VOLUME 82.7 fl (82.0-101.0); MEAN PLATELET VOLUME 11.2 fl (7.4-10.4); MONOCYTE # 0.7 10^3/ul (0.3-0.9); MONOCYTES % 4.3 % (0.0-11.0); NEUTROPHIL # 15.1 10^3/ul (1.6-7.5); NEUTROPHILS % 89.5 % (39.0-77.0); PLATELET COUNT 177 10^3/UL (140-415); RED BLOOD COUNT 5.65 10^6/ul (4.70-6.10); RED CELL DISTRIBUTION WIDTH 17.2 % (11.5-14.5)
[2019-03-22 05:59] LABS: WHITE BLOOD COUNT 16.8 10^3/ul (4.8-10.8)
[2019-03-22 06:38] LABS: ALANINE AMINOTRANSFERASE 64 IU/L (13-69); ALBUMIN 3.3 g/dl (3.3-4.9); ALBUMIN/GLOBULIN RATIO 1.26; ALKALINE PHOSPHATASE 64 IU/L (42-121); ANION GAP 12 (5-13); ASPARTATE AMINO TRANSFERASE 33 IU/L (15-46); BILIRUBIN,INDIRECT 0.7 mg/dl (0-1.1); BILIRUBIN,TOTAL 0.7 mg/dl (0.2-1.3); BLOOD UREA NITROGEN 31 mg/dl (7-20); CALCIUM 9.7 mg/dl (8.4-10.2); CARBON DIOXIDE 27 mmol/L (21-31); CHLORIDE 99 mmol/L (97-110); CREATININE 0.79 mg/dl (0.61-1.24); Estimated GFR > 60 mL/min (>60); GLUCOSE 128 mg/dl (70-220); POTASSIUM 4.5 mmol/L (3.5-5.1); SODIUM 138 mmol/L (135-144); TOTAL PROTEIN 5.9 g/dl (6.1-8.1)
[2019-03-22 06:39] LABS: B-TYPE NATRIURETIC PEPTIDE 451 PG/ML (0-125)
[2019-03-22] MEDS: INSULIN ASPART [NOVOLOG] 3 ML PEN SC ×6 (08:00→21:47)
[2019-03-22] MEDS: POLYETHYLENE GLYCOL 17 GM PACKET PO ×2 (08:23→21:20)
[2019-03-22] MEDS: NYSTATIN SUSP 5 ML CUP PO ×4 (08:24→21:23)
[2019-03-22] MEDS: EMPAGLIFLOZIN 10 MG TABLET PO (08:25)
[2019-03-22] MEDS: metFORMIN (XR) 500 MG TAB PO ×2 (08:25→21:22)
[2019-03-22] MEDS: APIXABAN 5 MG TABLET PO ×2 (08:26→21:23)
[2019-03-22] MEDS: DOXYCYCLINE 100 MG TAB PO ×2 (08:26→21:21)
[2019-03-22] MEDS: DOCUSATE SODIUM 100 MG CAP PO ×2 (08:27→21:21)
[2019-03-22] MEDS: METOPROLOL (XL) 25 MG TAB PO ×3 (08:27→21:22)
[2019-03-22] MEDS: ACETAZOLAMIDE 250 MG TAB PO ×2 (08:28→21:26)
[2019-03-22] MEDS: LINAGLIPTIN 5 MG TABLET PO (08:29)
[2019-03-22] MEDS: CYCLOSET PO (08:29)
[2019-03-22] MEDS: SPIRONOLACTONE 25 MG TAB PO (08:29)
[2019-03-22] MEDS: FUROSEMIDE 40 MG INJ IV (09:00)
[2019-03-22] MEDS: ACETYLCYSTEINE 20% 4 ML VIAL NEB ×2 (14:00→20:05)
[2019-03-22] MEDS: CASPOFUNGIN 50 MG in SOD CHLORIDE 0.9% 250 ML IVPB (15:55)
[2019-03-22] MEDS: CEFTRIAXONE 2 GM/50 ML (PMX) 50 ML IVPB (15:55)
[2019-03-22 15:56] LABS: ANA SCREEN NEGATIVE (NEGATIVE)
[2019-03-22] MEDS: DIGOXIN 0.25 MG TAB PO (16:11)
[2019-03-22] MEDS: ATORVASTATIN 20 MG TAB PO (21:23)
[2019-03-23] MEDS: ALBUTEROL/IPRATROPIUM (NEB) 3 ML AMP HHN ×6 (01:36→20:15)
[2019-03-23] MEDS: ACETYLCYSTEINE 20% 4 ML VIAL NEB ×4 (01:36→20:15)
[2019-03-23] MEDS: ACCU-CHEK XX (02:09)
[2019-03-23] MEDS: INSULIN ASPART [NOVOLOG] 3 ML PEN SC ×4 (07:23→21:11)
[2019-03-23] MEDS: POLYETHYLENE GLYCOL 17 GM PACKET PO ×2 (08:16→21:03)
[2019-03-23] MEDS: CYCLOSET PO (08:17)
[2019-03-23] MEDS: NYSTATIN SUSP 5 ML CUP PO ×4 (08:18→21:03)
[2019-03-23] MEDS: FUROSEMIDE 40 MG INJ IV (08:18)
[2019-03-23] MEDS: metFORMIN (XR) 500 MG TAB PO ×2 (08:19→21:03)
[2019-03-23] MEDS: DOCUSATE SODIUM 100 MG CAP PO ×2 (08:19→21:02)
[2019-03-23] MEDS: DIGOXIN 0.25 MG TAB PO (08:19)
[2019-03-23] MEDS: DOXYCYCLINE 100 MG TAB PO ×2 (08:19→21:01)
[2019-03-23] MEDS: predniSONE 10 MG TAB PO (08:20)
[2019-03-23] MEDS: SPIRONOLACTONE 25 MG TAB PO (08:20)
[2019-03-23] MEDS: APIXABAN 5 MG TABLET PO ×2 (08:20→21:02)
[2019-03-23] MEDS: EMPAGLIFLOZIN 10 MG TABLET PO (08:21)
[2019-03-23] MEDS: NPH, HUMAN INSULIN ISOPHANE 3ML VIAL SC (08:24)
[2019-03-23] MEDS: LINAGLIPTIN 5 MG TABLET PO (08:24)
[2019-03-23] MEDS: METOPROLOL (XL) 25 MG TAB PO ×2 (08:27→21:00)
[2019-03-23] MEDS: ACETAZOLAMIDE 250 MG TAB PO ×2 (08:29→21:02)
[2019-03-23 09:56] LABS: ANION GAP 7 (5-13); BLOOD UREA NITROGEN 31 mg/dl (7-20); CALCIUM 9.5 mg/dl (8.4-10.2); CARBON DIOXIDE 29 mmol/L (21-31); CHLORIDE 102 mmol/L (97-110); CREATININE 0.83 mg/dl (0.61-1.24); Estimated GFR > 60 mL/min (>60); GLUCOSE 94 mg/dl (70-220); POTASSIUM 4.4 mmol/L (3.5-5.1); SODIUM 138 mmol/L (135-144)
[2019-03-23] MEDS: CASPOFUNGIN 50 MG in SOD CHLORIDE 0.9% 250 ML IVPB (12:28)
[2019-03-23] MEDS: CEFTRIAXONE 2 GM/50 ML (PMX) 50 ML IVPB (14:01)
[2019-03-23] MEDS: ATORVASTATIN 20 MG TAB PO (21:02)
[2019-03-24] MEDS: ACETYLCYSTEINE 20% 4 ML VIAL NEB ×4 (01:27→20:20)
[2019-03-24] MEDS: ALBUTEROL/IPRATROPIUM (NEB) 3 ML AMP HHN ×6 (01:27→20:21)
[2019-03-24] MEDS: ACCU-CHEK XX (02:00)
[2019-03-24] MEDS: INSULIN ASPART [NOVOLOG] 3 ML PEN SC ×4 (07:25→21:00)
[2019-03-24] MEDS: METOPROLOL (XL) 25 MG TAB PO ×3 (08:01→21:06)
[2019-03-24] MEDS: DOXYCYCLINE 100 MG TAB PO ×2 (08:41→21:01)
[2019-03-24] MEDS: APIXABAN 5 MG TABLET PO ×2 (08:41→21:01)
[2019-03-24] MEDS: ACETAZOLAMIDE 250 MG TAB PO ×2 (08:41→21:02)
[2019-03-24] MEDS: NYSTATIN SUSP 5 ML CUP PO ×4 (08:41→21:02)
[2019-03-24] MEDS: DOCUSATE SODIUM 100 MG CAP PO ×2 (08:41→21:00)
[2019-03-24] MEDS: POLYETHYLENE GLYCOL 17 GM PACKET PO ×2 (08:41→21:03)
[2019-03-24] MEDS: LINAGLIPTIN 5 MG TABLET PO (08:42)
[2019-03-24] MEDS: predniSONE 10 MG TAB PO (08:42)
[2019-03-24] MEDS: DIGOXIN 0.25 MG TAB PO (08:42)
[2019-03-24] MEDS: metFORMIN (XR) 500 MG TAB PO ×2 (08:43→21:07)
[2019-03-24] MEDS: CYCLOSET PO (08:43)
[2019-03-24] MEDS: EMPAGLIFLOZIN 10 MG TABLET PO (08:43)
[2019-03-24] MEDS: SPIRONOLACTONE 25 MG TAB PO (08:43)
[2019-03-24] MEDS: NPH, HUMAN INSULIN ISOPHANE 3ML VIAL SC (08:45)
[2019-03-24] MEDS: FUROSEMIDE 40 MG INJ IV (09:00)
[2019-03-24] MEDS: CASPOFUNGIN 50 MG in SOD CHLORIDE 0.9% 250 ML IVPB (12:31)
[2019-03-24] MEDS: CEFTRIAXONE 2 GM/50 ML (PMX) 50 ML IVPB (13:31)
[2019-03-24] MEDS: ATORVASTATIN 20 MG TAB PO (21:01)
[2019-03-24 22:28] LABS: Allen Test ACCEPTAB; Arterial Base Excess 1.1 mmol/L (-3.0-3); Arterial Blood Gas Oxygen Sat 90.7 mmHG (95.0-98.0); Arterial Fraction of Oxyhgb 89.5 % (93.0-99.0); Arterial HCO3 26.3 mmol/L (22.0-26.0); Arterial MetHb 0.3 % (0.0-1.5); Arterial pCO2 43.6 mmhg (35-45); MODE NASAL CANNULA; Site Right Radial
[2019-03-25] MEDS: PROMETHAZINE/DM (CUP) PO (00:47)
[2019-03-25] MEDS: ALBUTEROL/IPRATROPIUM (NEB) 3 ML AMP HHN ×6 (01:25→20:02)
[2019-03-25] MEDS: ACETYLCYSTEINE 20% 4 ML VIAL NEB ×4 (01:25→20:02)
[2019-03-25] MEDS: ACCU-CHEK XX (02:00)
[2019-03-25 05:54] LABS: ADD MAN DIFF? NO
[2019-03-25 06:00] LABS: WHITE BLOOD COUNT 12.6 10^3/ul (4.8-10.8)
[2019-03-25 06:00] LABS: BASOPHIL # 0.1 10^3/ul (0.0-0.1); BASOPHILS % 0.4 % (0.0-2.0); EOSINOPHILS # 0.2 10^3/ul (0.0-0.5); EOSINOPHILS % 1.5 % (0.0-7.0); HEMATOCRIT 43.1 % (42.0-52.0); HEMOGLOBIN 13.1 g/dl (14.0-18.0); LYMPHOCYTES # 1.9 10^3/ul (0.8-2.9); LYMPHOCYTES % 15.3 % (15.0-51.0); MEAN CORPUSCULAR HEMOGLOBIN 25.7 pg (29.0-33.0); MEAN CORPUSCULAR HGB CONC 30.4 g/dl (32.0-37.0); MEAN CORPUSCULAR VOLUME 84.7 fl (82.0-101.0); MEAN PLATELET VOLUME 11.5 fl (7.4-10.4); MONOCYTE # 0.7 10^3/ul (0.3-0.9); MONOCYTES % 5.9 % (0.0-11.0); NEUTROPHIL # 9.4 10^3/ul (1.6-7.5); NEUTROPHILS % 74.7 % (39.0-77.0); PLATELET COUNT 155 10^3/UL (140-415); RED BLOOD COUNT 5.09 10^6/ul (4.70-6.10); RED CELL DISTRIBUTION WIDTH 16.9 % (11.5-14.5)
[2019-03-25] MEDS: INSULIN ASPART [NOVOLOG] 3 ML PEN SC ×4 (07:29→21:03)
[2019-03-25] MEDS: POLYETHYLENE GLYCOL 17 GM PACKET PO ×2 (08:56→20:44)
[2019-03-25] MEDS: NYSTATIN SUSP 5 ML CUP PO ×4 (08:58→20:44)
[2019-03-25] MEDS: CYCLOSET PO (08:59)
[2019-03-25] MEDS: metFORMIN (XR) 500 MG TAB PO ×2 (09:00→20:44)
[2019-03-25] MEDS: APIXABAN 5 MG TABLET PO ×2 (09:00→20:43)
[2019-03-25] MEDS: NPH, HUMAN INSULIN ISOPHANE 3ML VIAL SC ×2 (09:00→09:14)
[2019-03-25] MEDS: predniSONE 20 MG TAB PO (09:00)
[2019-03-25] MEDS: METOPROLOL (XL) 25 MG TAB PO ×2 (09:00→20:46)
[2019-03-25] MEDS: ACETAZOLAMIDE 250 MG TAB PO ×2 (09:00→20:43)
[2019-03-25] MEDS: DOXYCYCLINE 100 MG TAB PO (09:01)
[2019-03-25] MEDS: DOCUSATE SODIUM 100 MG CAP PO ×2 (09:02→20:43)
[2019-03-25] MEDS: LINAGLIPTIN 5 MG TABLET PO (09:02)
[2019-03-25] MEDS: EMPAGLIFLOZIN 10 MG TABLET PO (09:02)
[2019-03-25] MEDS: DIGOXIN 0.25 MG TAB PO (09:02)
[2019-03-25] MEDS: SPIRONOLACTONE 25 MG TAB PO (09:03)
[2019-03-25] MEDS: FUROSEMIDE 40 MG INJ IV (09:03)
[2019-03-25] MEDS: ATORVASTATIN 20 MG TAB PO (20:44)
[2019-03-26] MEDS: ACETYLCYSTEINE 20% 4 ML VIAL NEB ×3 (01:47→13:54)
[2019-03-26] MEDS: LEVALBUTEROL (NEB) 1.25 MG/0.5 ML AMP HHN ×5 (01:47→17:49)
[2019-03-26] MEDS: ACCU-CHEK XX (02:14)
[2019-03-26 06:57] LABS: ANION GAP 7 (5-13); BLOOD UREA NITROGEN 26 mg/dl (7-20); CALCIUM 9.6 mg/dl (8.4-10.2); CARBON DIOXIDE 29 mmol/L (21-31); CHLORIDE 102 mmol/L (97-110); CREATININE 0.75 mg/dl (0.61-1.24); Estimated GFR > 60 mL/min (>60); GLUCOSE 113 mg/dl (70-220); POTASSIUM 4.6 mmol/L (3.5-5.1); SODIUM 138 mmol/L (135-144)
[2019-03-26 06:58] LABS: MAGNESIUM 1.9 mg/dl (1.7-2.5)
[2019-03-26] MEDS: EMPAGLIFLOZIN 10 MG TABLET PO (07:50)
[2019-03-26] MEDS: INSULIN ASPART [NOVOLOG] 3 ML PEN SC ×3 (07:50→17:32)
[2019-03-26] MEDS: POLYETHYLENE GLYCOL 17 GM PACKET PO (08:11)
[2019-03-26] MEDS: NYSTATIN SUSP 5 ML CUP PO ×3 (08:11→17:20)
[2019-03-26] MEDS: SPIRONOLACTONE 25 MG TAB PO (08:12)
[2019-03-26] MEDS: predniSONE 20 MG TAB PO (08:12)
[2019-03-26] MEDS: ACETAZOLAMIDE 250 MG TAB PO (08:12)
[2019-03-26] MEDS: DOCUSATE SODIUM 100 MG CAP PO (08:12)
[2019-03-26] MEDS: APIXABAN 5 MG TABLET PO (08:13)
[2019-03-26] MEDS: metFORMIN (XR) 500 MG TAB PO (08:13)
[2019-03-26] MEDS: LINAGLIPTIN 5 MG TABLET PO (08:13)
[2019-03-26] MEDS: METOPROLOL (XL) 25 MG TAB PO (08:14)
[2019-03-26] MEDS: DIGOXIN 0.25 MG TAB PO (08:14)
[2019-03-26] MEDS: FUROSEMIDE 40 MG INJ IV (08:15)
[2019-03-26] MEDS: CYCLOSET PO (08:20)
[2019-03-26] MEDS: NPH, HUMAN INSULIN ISOPHANE 3ML VIAL SC (09:27)
[2019-03-26] MEDS: DIGOXIN 500 MCG INJ IV (11:16)
[2019-03-26] MEDS: SOD CHLORIDE 0.9% 500 ML IV (11:22)
[2019-03-26] MEDS ORDERED: DIGOXIN 0.125 MG TAB PO (13:00)
[2019-03-26] MEDS: REPAGLINIDE 1 MG TAB PO (17:25)
[2019-03-26] MEDS: ACARBOSE 50 MG TAB PO (17:26)
[2019-03-27] MEDS ORDERED: predniSONE 10 MG TAB PO (09:00)
== END 2019-03-26 18:40 | disposition home health service (06) | DRG 193 ==
LOC: 6WM 03-21 18:45 → E/R 13:06 → ICU 03-13 06:16
DX: J18.9 Pneumonia, unspecified organism (principal); J96.01 Acute respiratory failure with hypoxia; I50.43 Acute on chronic combined systolic (congestive) and diastolic (congestive) heart failure; E87.3 Alkalosis; I42.9 Cardiomyopathy, unspecified; B37.0 Candidal stomatitis; I11.0 Hypertensive heart disease with heart failure; T17.990A Other foreign object in respiratory tract, part unspecified in causing asphyxiation, initial encounter; I48.0 Paroxysmal atrial fibrillation; E78.5 Hyperlipidemia, unspecified; E66.8 Other obesity; E86.9 Volume depletion, unspecified; E11.65 Type 2 diabetes mellitus with hyperglycemia; G47.30 Sleep apnea, unspecified; I27.20 Pulmonary hypertension, unspecified; T38.0X5A Adverse effect of glucocorticoids and synthetic analogues, initial encounter; Z68.36 Body mass index [BMI] 36.0-36.9, adult
CPT/HCPCS: 36600; 71045; 71260; 71275; 80048; 80053; 80162; 80202; 81003; 82803; 82962; 83605; 83735; 83880; 84100; 84439; 84443; 84484; 85025; 85378; 85610; 85730; 86038; 86606; 86635; 86703; 87040-91; 87045; 87070; 87077; 87081; 87086; 87449; 93005; 93306; 93308; 94640; 94644; 94664; 94668; 97161; 99285-25